=== PATIENT | female | born 1930 | race Caucasian/White ===

== ENCOUNTER 2017-03-29 06:28 | Outpatient (CLI) | payer MEDICARE ==
[~2017-03-29] VITALS: Ht 154.9 cm; Wt 54.5 kg
--- NOTE | ~2017-03-29 | HEMODYNAMI ---
PATIENT:VERONICA WHITE MEDICAL RECORD: [id number] : [birth year] LOCATION:[facility] ADMISSION DATE: 03/29/17 Generatedon:03/29/201711:10 Patient name: VERONICA WHITE Patient #: [id number] SSN: : 1930 Date of study: 03/29/2017 Page: Of Hemodynamic Procedure Report Patient Data Patient Demographics Procedure consent was obtained First Name: VERONICA Gender: Female Last Name: CINDY : 1930 Middle Initial: H Age: 86 year(s) Patient #: [id number] Race: Unknown Additional ID: [id number] Contact details Address: [address] [place] [address] State: [place] City: [facility] Zip code: [address] Admission Admission Data Admission Date: 03/29/2017 Admission Time: 6:28 Procedure Procedure Types Cath Procedure Peripheral Cath Diagnostic Procedure Miscellaneous Procedure Description Procedure Date Procedure Date: 03/29/2017 Procedure Start Time: 10:32 Procedure Staff Name Function Naresh Jay MD Performing Physician Riri Jaquez RT Scrub Sulema Maurer RN Nurse Coleman Vigil RT Monitor Procedure Data Cath Procedure Fluoroscopy Diagnostic fluoroscopy Total fluoroscopy Time: 5.8 time: 5.8 min min Diagnostic fluoroscopy Total fluoroscopy dose: 104 dose: 104 mGy mGy Hemodynamics Rest Heart Rate: 75 (bpm) Snapshots Pre Cath Intra NCS Post Cath Vital Signs Time Heart Resp SPO2 NIBP (mmHg) Rhythm Pain Sedation Rate (ipm) (%) Status Level (bpm) 10:12:26 60 36 100 138/59(111) NSR 0 (11) 10(A) , No pain 10:17:25 63 11 100 Measuring NSR 0 (11) 10(A) , No pain 10:17:31 47 11 99 139/71(77) NSR 0 (11) 10(A) , No pain 10:22:30 69 9 100 Measuring NSR 0 (11) 10(A) , No pain 10:22:49 69 7 100 112/57(101) NSR 0 (11) 10(A) , No pain 10:26:59 71 14 100 117/50(88) NSR 0 (11) 10(A) , No pain 10:31:10 54 14 100 109/50(82) NSR 0 (11) 10(A) , No pain 10:35:18 52 13 100 105/52(80) NSR 0 (11) 10(A) , No pain 10:39:26 63 13 100 110/50(89) NSR 0 (11) 10(A) , No pain 10:43:36 60 15 99 102/48(79) NSR 0 (11) 10(A) , No pain 10:48:35 48 15 99 Measuring NSR 0 (11) 10(A) , No pain 10:48:37 44 17 99 86/68(81) NSR 0 (11) 10(A) , No pain 10:53:36 57 14 99 Measuring NSR 0 (11) 10(A) , No pain 10:53:55 58 20 99 117/32(42) NSR 0 (11) 10(A) , No pain 10:58:11 65 16 99 105/47(76) NSR 0 (11) 10(A) , No pain 11:02:21 61 12 99 97/46(79) NSR 0 (11) 10(A) , No pain 11:06:26 50 12 99 99/46(76) NSR 0 (11) 10(A) , No pain 11:10:34 50 12 99 99/44(79) NSR 0 (11) 10(A) , No pain Procedure Log Time Note 9:57:52 Coleman Vigil RT (R) (CV) sent for patient. Start room use. 9:58:34 Time tracking: Regular hours 9:58:41 Plan of Care:Hemodynamics will remain stable., Cardiac rhythm will remain stable., Comfort level will be maintained., Respiratory function will remain adequate., Patient/ family verbilizes understanding of procedure., Procedure tolerated without complication., Recovers from procedure without complications.. 9:58:47 Patient received from Outpatients to IR Alert and oriented. Tansferred to table in Prone position. 9:58:49 Correct patient and procedure confirmed by team. 9:58:51 Signed procedure consent form obtained from patient. 9:58:52 ECG and BP/O2 sat monitors applied to patient. 10:06:25 Al Heidi here from anesthesia SEE ANESTHESIA NOTE FOR PRE PROCEDURE TIVA 10:06:31 Use device set IR Diagnostic 10:06:32 Sterile Angiographic Pack opened to sterile field. 10:06:33 Bag Decanter opened to sterile field. 10:11:10 Baseline sample Acquired. 10:11:10 Vital chart was started 10:16:18 Lumbar area was prepped with dura-prep and draped in sterile fashion 10::58 --------ALL STOP TIME OUT------ 10:29:59 Final Timeout: patient, procedure, and site verified with staff and physician. All members of the team are in agreement. 10:30:05 Lumbar site verified by team. 10:30:23 Physical assessment completed. ASA score P 2 - A patient with mild systemic disease as per Naresh Jay MD. 10:30:27 Sedation plan: IV Moderate Sedation Propofol 10:32:20 Procedure started. 10:32:20 Full Disclosure recording started 10:32:26 Local anesthetic to Lumbar L-1 area with Lidocaine 1% by Naresh Jay MD.INITIAL ACCESS ONLY 10:37:53 TROY AUTOPLEX MIXER W/VHV opened to sterile field. 10:37:54 Troy 11G Curved Needle opened to sterile field. 10:37:55 TROY CANNULA ACCESS 10 G NEEDLE opened to sterile field. 10:38:09 Troy BONE BX 11GA kit opened to sterile field. 11:00:35 Procedure ended.(Physican Out) 11:01:16 Fluoroscopy time 05.80 minutes. 11:01:21 Fluoroscopy dose: 104 mGy 11:01:21 Flurop Dose total: 104 11:01:25 Sharps counted by scrub and verified by R.N. 11:01:27 Insertion/operative site no bleeding no hematoma. 11:03:13 Post Lumbar area:stable 11:03:18 Post-procedure physical assessment completed. ASA score P 2 - A patient with mild systemic disease as per Naresh Jay MD. 11:03:20 Post procedure instruction explained to patient.Patient verbalizes understanding. 11:10:04 Procedure and supply charges have been captured, reviewed, submitted and are correct. 11:10:07 Report given to Outpatients. 11:10:10 Patient transfered to Outpatients with Bed. 11:10:54 Vital chart was stopped Device Usage Item Name Manufacture Quantity Catalog Hospital Part Current Minim al Lot# / Number Charge Number Stock Stock Serial# Code Sterile Cardinal 1 [id number] Angiographic Health Pack Bag Decanter Microtek 1 [id number] 5 [employer] TROY Troy 1 [id number] [id number] 5 AUTOPLEX MIXER W/VHV Troy 11G [place] 1 [id number] 5 Curved Needle TROY [place] 1 [id number] [id number] 5 CANNULA ACCESS 10 G NEEDLE Troy BONE [place] 1 [id number] 5 BX 11GA kit Signature Audit Louann Stage Time Signature Unsigned Intra-Procedure 03/29/2017 Coleman 11:10:51 AM Musa RT (R) (CV) Signatures Monitor : Coleman Signature : Musa RT Date : Time : [address] [address]
[2017-03-29 07:48] LABS: BASOPHILS 0.5 % (0-2); EOSINOPHILS 4.5 % (0-7); HEMOGLOBIN 10.9 g/dL (12-16); IMMATURE GRANULOCYTES 0.5 % (0-5); LYMPHOCYTES 18.9 % (15-50); MCH 29.9 pg (26.0-34.0); MCHC 35.2 g/dL (31.0-37.0); MCV 85.2 fL (80.0-100.0); MEAN PLATELET VOLUME 8.6 fL (7.4-10.4); MONOCYTES 18.5 % (2-11); NEUTROPHILS 57.1 % (40-80); RBC 3.64 10x6/uL (4.00-5.40)
[2017-03-29 07:54] LABS: PLATELET COUNT 213 10x3/uL (130-400)
[2017-03-29 08:00] LABS: APTT 30.7 SECONDS (22.8-39.4); INR 1.05 (0.85-1.17); PROTIME 13.5 SECONDS (11.6-15.0)
[2017-03-29 08:06] LABS: ANION GAP 14.6 mmol/L (8-16); CALCIUM 8.7 mg/dL (8.5-10.1); CARBON DIOXIDE 24.9 mmol/L (21.0-32.0); CREATININE - SERUM 1.4 mg/dL (0.6-1.3); POTASSIUM - SERUM 3.5 mmol/L (3.5-5.1)
[2017-03-29] MEDS ORDERED: CATAPRES0.2 MG PO (08:11)
[2017-03-29] MEDS ORDERED: POTASSIUM20 MEQ/11 PO (08:12)
[2017-03-29] MEDS ORDERED: HYDROCHLOROTHIA25 MG PO (08:12)
[2017-03-29] MEDS ORDERED: ANASTROZOLE1 MG PO (08:12)
[2017-03-29] MEDS ORDERED: METAMUCIL PACKE1 PKT PO (08:13)
[2017-03-29] MEDS ORDERED: CALCIUM 500 +1 EAC3 PO (08:13)
[2017-03-29] MEDS ORDERED: ADVIL200 MG PO (08:14)
[2017-03-29] MEDS ORDERED: NORVASC2.5 MG PO (08:14)
[2017-03-29] MEDS ORDERED: COZAAR50 MG PO (08:15)
[2017-03-29 08:17] VITALS: Ht 154.9 cm; Wt 54.5 kg
--- NOTE | 2017-03-29 11:54 | NUR ---
1130 SEE POST PROCEDURE VITAL SIGNS CHECKLIST FOR VITAL SIGNS.
== END 2017-03-29 14:35 | disposition home or self-care (01) ==
LOC: D.OPS 06:28 → D.RAD 08:00 → D.OPS 09:00 → D.RAD 09:00 → D.OPS 14:35
PROVIDERS: Radiology Diagnostic Radiology
DX: M48.56XA Collapsed vertebra, not elsewhere classified, lumbar region, initial encounter for fracture (principal); M51.04 Intervertebral disc disorders with myelopathy, thoracic region; Z88.1 Allergy status to other antibiotic agents; Z88.2 Allergy status to sulfonamides; Z79.899 Other long term (current) drug therapy; Z01.812 Encounter for preprocedural laboratory examination